=== PATIENT | female | born 1975 | race Caucasian/White ===

== ENCOUNTER 2022-05-14 05:25 | Day surgery (SDC) | payer OTHER ==
[2022-05-10 11:49] VITALS: BMI 23.3
[2022-05-14] MEDS ORDERED: DEXMEDETOMIDINE HCL 200 MCG/2 ML IVPB ONE (07:10)
[2022-05-14] MEDS ORDERED: ACETAMINOPHEN INJECTION 200 ML IVPB ONE (07:10)
[2022-05-14] MEDS ORDERED: BUPIVACAINE HCL/PF 0.25% (2.5MG/ML) 10 ML VIAL ONE (07:20)
[2022-05-14] MEDS ORDERED: ROCURONIUM BROMIDE 50 MG/5 ML SYRINGE ONE ×2 (07:24→07:26)
[2022-05-14] MEDS ORDERED: SUCCINYLCHOLINE CHLORIDE 200 MG/10 ML SYRINGE ONE (07:25)
[2022-05-14] MEDS ORDERED: MIDAZOLAM HCL 2 MG/2 ML SINGLE DOSE VIAL ONE (07:25)
[2022-05-14] MEDS ORDERED: PROPOFOL 60 ML ONE (07:25)
[2022-05-14] MEDS ORDERED: KETAMINE HCL 200 MG/20 ML VIAL ONE (07:25)
[2022-05-14] MEDS ORDERED: SUGAMMADEX SODIUM 200 MG/2 ML VIAL ONE (07:26)
[2022-05-14] MEDS ORDERED: cefOXitin SODIUM 2 GM VIAL (RESTRICTED TO ID) IVPB ONE (08:45)
[2022-05-14] MEDS ORDERED: BUPIVACAINE HCL/PF 0.25% (2.5MG/ML) 10 ML VIAL IJ ONE (08:55)
[2022-05-14] MEDS ORDERED: ONDANSETRON 4 MG/2 ML VIAL IVPUSH PRN (09:48)
[2022-05-14 10:59] VITALS: TEMP 98
[2022-05-14] MEDS ORDERED: oxyCODONE HCL 5 MG TABLET ONE (11:15)
[2022-05-14] MEDS ORDERED: oxyCODONE HCL 5 MG TABLET PO PRN (11:27)
[2022-05-14 13:18] VITALS: BP 131/75; PULSE 67; RESP 20
== END 2022-05-14 12:50 | disposition home or self-care (01) ==
LOC: JASU-SURG 05:25
PROVIDERS: ATTEND Surgery
PROC: 0FT44ZZ Resection of Gallbladder, Percutaneous Endoscopic Approach (ICD-10-PCS; principal; 2022-05-14 08:55)
DX: K81.1 Chronic cholecystitis (principal)
CPT/HCPCS: 81025; 88304-TC; 94760